=== PATIENT | male | born 1950 | race Caucasian/White ===

== ENCOUNTER 2021-02-27 08:31 | Inpatient (IN) | payer MEDICARE, BC ==
[~2021-02-27] VITALS: Ht 177.8 cm; Wt 84.1 kg
[2021-03-21] VITALS (10 sets, daily range): BP systolic 98–133; BP diastolic 56–75; PULSE 55–73; TEMP 97.4–98
[2021-03-21 06:29] LABS: BASO % 0.5 % (0.0-2.0); EOS # 0.1 K/mm3 (0.0-0.7); EOS % 1.7 % (0.0-4.0); GRAN # 4.5 K/mm3 (1.4-6.5); GRAN % 69.9 % (42.2-75.2); HEMATOCRIT 43.1 % (42.0-52.0); HEMOGLOBIN 15.2 g/dl (13.5-18.0); LYMPH # 1.1 K/mm3 (1.2-3.4); LYMPH % 17.4 % (20.0-51.0); MEAN CELL VOLUME 86 fl (80.0-100.0); MEAN CORPUSCULAR HEMOGLOBIN 30 pg (27-31); MEAN CORPUSCULAR HGB CONC 35 g/dl (33.0-37.0); MONO # 0.7 K/mm3 (0.1-0.6); MONO % 10.3 % (1.7-9.3); PLATELET COUNT 311 K/mm3 (130-400); RED BLOOD COUNT 5.03 M/mm3 (4.20-5.60); REDCELL DISTRIBUTION WIDTH-CV 13.4 % (11.5-14.5)
[2021-03-21] MEDS ORDERED: SYNTHROID0.05 MG/TA PO (06:29)
[2021-03-21] MEDS ORDERED: LIPITOR 10MG10 MG PO (06:29)
[2021-03-21] MEDS ORDERED: MULTI VITAMINS1 TAB PO (06:30)
[2021-03-21] MEDS ORDERED: EPA FISH OIL1 SGL PO (06:31)
[2021-03-21 06:51] LABS: ALBUMIN 4.2 gm/dL (3.4-4.8); BILIRUBIN,TOTAL 0.9 mg/dL (0.2-1.2); CALCIUM 9.2 mg/dL (8.4-10.2); CREATININE, serum 1.2 mg/dL (0.72-1.25); TOTAL PROTEIN 6.6 gm/dL (6.2-8.1)
--- NOTE | 2021-03-21 12:10 | NUR ---
PATIENT ADMITED INTO ROOM 348 POST OP ROBOTIC PROSTATE. PATIENT IS VERY DROWSY AND WILL ONLY BRIEFLY OPEN EYES WITH VERBAL STIMULI. VSS. NO C/O PAIN OR NAUSEA. ABD LAP SITES X6 ARE CD&I WITH GLUED CLOSURE. NOTED POSITIVE BOWL SOUNDS X4 QUADS. HEAD TO TOE ASSESSMENT COMPLETE. IV FLUIDS INFUSING INTO LEFT HAND IV. GAGNON TO DD WITH MOD AMOUNTS OF DARK PINK COLORED URINE, NO CLOTS. SCD'S TO BLE. NO FAMILY AT BEDSIDE YET, PACU TO BRING UP SHORTLY. NO OTHER NEEDS. CALL LIGHT IN REACH. BED ALARM ON.
--- NOTE | 2021-03-21 15:50 | NUR ---
PATIENT AMBULATING IN HALLS AND DOING WELL.
--- NOTE | 2021-03-22 00:03 | NUR ---
ASSESSMENT COMPLETE FOR THIS SHIFT. PT COOPERATIVE WITH CARES. PT RESTING IN BED DRIFTING OFF TO SLEEP. PT DENIES PAIN, PALPITATIONS, SOB OR DIZZINESS. PT HAD A UNEVENTFUL NIGHT. SCHEDULED PAIN MEDICATION SEEMS TO BE EFFICIENT FOR PT'S PAIN MANAGEMNET. PT STATES HE HAS NO OTHER NEEDS AT THIS TIME. CALL LIGHT WITHIN REACH.
[2021-03-22 00:07] VITALS: BP 119/64; PULSE 66; TEMP 98.4
[2021-03-22 03:53] VITALS: BP 120/62; PULSE 76; TEMP 97.9
[2021-03-22 06:26] LABS: HEMATOCRIT 37.1 % (42.0-52.0)
[2021-03-22 06:30] LABS: HEMOGLOBIN 12.4 g/dl (13.5-18.0)
[2021-03-22 06:51] LABS: CALCIUM 8.4 mg/dL (8.4-10.2); CREATININE, serum 1.37 mg/dL (0.72-1.25)
[2021-03-22 07:55] VITALS: BP 110/67; PULSE 64; TEMP 98.5
--- NOTE | 2021-03-22 08:00 | NUR ---
PATIENT IS A&O. VSS. NO C/O PAIN OR NAUSEA, GAGNON TO DD WITH MOD AMOUNTS OF LIZBETH COLORED URINE NOTED. LEFT HAND IV TO INT. HEAD TO TOE ASSESSMENT COMPLETE. AM MEDS GIVEN. BREAKFAST TRAY AT BEDSIDE. NO OTHER NEEDS AT THIS TIME. CALL LIGHT IN REACH.
[2021-03-22 12:24] VITALS: BP 103/60; PULSE 62; TEMP 98.1
--- NOTE | 2021-03-22 14:45 | NUR ---
PATIENT'S AT BEDSIDE AND HE IS READY TO DISCHARGE HOME. GAVE DISCHARGE INSTRUCTIONS, GAGNON CATH & LEG BAG TEACHING, AND DISCUSSED F/U APT. ANSWERED QUESTIONS/CONCERNS. PCT DC'D LEFT HAND IV, COVERED SITE WITH GAUZE & COBAN. PATIENT GETTING DRESSED & PACKED. WILL CALL WHEN READY TO LEAVE.
--- NOTE | 2021-03-22 14:50 | NUR ---
PATIENT ESCORTED OUT VIA WC WITH TO PERSONAL VEHICLE.
== END 2021-03-22 14:50 | disposition home or self-care (01) | DRG 708 ==
LOC: SURG 03-21 05:16 → INPTSU 03-21 05:16 → SURG 03-21 07:30
PROVIDERS: ADMIT Urology
PROC: 07BC4ZZ Excision of Pelvis Lymphatic, Percutaneous Endoscopic Approach (ICD-10-PCS; 2021-03-21)
PROC: 8E0W4CZ Robotic Assisted Procedure of Trunk Region, Percutaneous Endoscopic Approach (ICD-10-PCS; 2021-03-21)
PROC: 0VT04ZZ Resection of Prostate, Percutaneous Endoscopic Approach (ICD-10-PCS; principal; 2021-03-21 07:30)
DX: C61 Malignant neoplasm of prostate (principal); Z23 Encounter for immunization
CPT/HCPCS: A4314; A9284; J0690; J1885; J7120